=== PATIENT | male | born 1975 | race Caucasian/White ===

== ENCOUNTER 2016-11-29 18:07 | Emergency (ER) | payer OTHER ==
[~2016-11-29] VITALS: Ht 175.3 cm; Wt 89.0 kg
[2016-11-29 18:09] VITALS: BP 148/78
== END 2016-11-29 20:20 | disposition left against medical advice (07) ==
LOC: ER 20:12
DX: T30.0 Burn of unspecified body region, unspecified degree (principal); Z53.21 Procedure and treatment not carried out due to patient leaving prior to being seen by health care provider